=== PATIENT | male | born 1975 ===

== ENCOUNTER 2022-04-29 20:20 | Inpatient (IN) | payer OTHER ==
[2022-04-29 19:21] VITALS: BMI 28.2
[~2022-04-29 20:20] MED LIST: ACETAMINOPHEN 325 MG TABLET (FP) PO PRN; BENZOCAINE/MENTHOL (CHLORASEPTIC ) LOZENGE MM PRN; BISMUTH SUBSALICYLATE 524 MG/30 ML PO PRN; DICYCLOMINE HCL 10 MG CAPSULE PO PRN; IBUPROFEN 400 MG TABLET (FP) PO PRN; LOPERAMIDE HCL 2 MG CAPSULE PO PRN; MAG HYDROX/AL HYDROX/SIMETH 30 ML UNIT-DOSE CUP PO PRN; MAGNESIUM CITRATE 300 ML BOTTLE PO PRN; MAGNESIUM HYDROX 2400MG/30ML ORAL SUSPENSION 30 ML CUP PO PRN; NALOXONE HCL (KLOXXADO) 8 MG SPRAY NS PRN; ONDANSETRON *ODT* 4 MG TABLET SL PRN; P-EPHED 60MG/TRIPROLIDI 2.5MG TABLET PO PRN; guaiFENesin 200 MG/10 ML 10 ML UNIT-DOSE CUPS PO PRN; methaDONE HCL 10 MG TABLET (FOR DETOX USE ONLY) PO ONE
[2022-04-29] MEDS: hydrOXYzine PAMOATE 25 MG CAPSULE (FP) PO PRN (22:18)
[2022-04-29] MEDS: THIAMINE HCL 100 MG TABLET (FP) PO SCH (22:18)
[2022-04-29] MEDS: MELATONIN 5 MG TABLETS PO PRN (22:18)
[2022-04-29] MEDS: NICOTINE 10 MG CARTRIDGE (INHALER) IH PRN (22:21)
[2022-04-30] MEDS: cloNIDine HCL 0.1 MG TABLET PO PRN (05:36)
[2022-04-30] MEDS: hydrOXYzine PAMOATE 25 MG CAPSULE (FP) PO PRN ×3 (05:38→16:30)
[2022-04-30] MEDS: METHOCARBAMOL 500 MG TABLET PO PRN (10:11)
[2022-04-30] MEDS: PRENATAL VITAMINS W/ FOLIC ACID TABLET (FP) PO SCH (10:12)
[2022-04-30 11:02] LABS: HEMATOCRIT 38.7 % (35.4-49); HEMOGLOBIN 13.1 GM/dL (11.7-16.9); MCH 29.9 pg (25.7-33.7); MCHC 33.9 g/dl (32.0-35.9); MEAN CELL VOLUME 88.3 fl (80-96); MEAN PLT VOLUME 8.7 fl (7.5-11.1); PLATELET COUNT 256 10^3/uL (134-434); RBC 4.38 M/mm3 (4.00-5.60); RDW 14.4 % (11.9-15.9); WHITE BLOOD COUNT 7.9 K/mm3 (4.0-10.0)
[2022-04-30 11:15] LABS: ALBUMIN 3.3 g/dl (3.4-5.0); BLOOD UREA NITROGEN 11.6 mg/dL (7-18); CALCIUM 9.2 mg/dL (8.5-10.1)
[2022-04-30 11:18] LABS: CREATININE 0.8 mg/dL (0.55-1.3)
[2022-04-30 11:20] LABS: BILIRUBIN,TOTAL 0.2 mg/dL (0.2-1); TOT PROT 6.5 g/dl (6.4-8.2)
[2022-04-30] MEDS: diazePAM 5 MG TABLET PO PRN ×2 (12:59→19:08)
[2022-04-30] MEDS: THIAMINE HCL 100 MG TABLET (FP) PO SCH (23:12)
[2022-05-01] MEDS: METHOCARBAMOL 500 MG TABLET PO PRN ×4 (01:36→23:15)
[2022-05-01] MEDS: hydrOXYzine PAMOATE 25 MG CAPSULE (FP) PO PRN ×6 (01:36→23:15)
[2022-05-01] MEDS: MELATONIN 5 MG TABLETS PO PRN ×2 (01:36→23:15)
[2022-05-01] MEDS: IBUPROFEN 600 MG TABLET (FP) PO PRN (07:17)
[2022-05-01] MEDS: PRENATAL VITAMINS W/ FOLIC ACID TABLET (FP) PO SCH (09:58)
[2022-05-01] MEDS ORDERED: methaDONE HCL 10 MG TABLET (FOR DETOX USE ONLY) PO ONE (10:00)
[2022-05-01] MEDS: diazePAM 5 MG TABLET PO PRN ×2 (13:05→18:34)
[2022-05-01] MEDS: cloNIDine HCL 0.1 MG TABLET PO PRN ×3 (14:44→23:15)
[2022-05-01] MEDS: NICOTINE 10 MG CARTRIDGE (INHALER) IH PRN (15:15)
[2022-05-01] MEDS: THIAMINE HCL 100 MG TABLET (FP) PO SCH (23:14)
[2022-05-02] MEDS: hydrOXYzine PAMOATE 25 MG CAPSULE (FP) PO PRN ×4 (05:38→21:31)
[2022-05-02] MEDS: PRENATAL VITAMINS W/ FOLIC ACID TABLET (FP) PO SCH (09:47)
[2022-05-02] MEDS: diazePAM 5 MG TABLET PO PRN ×4 (09:47→21:31)
[2022-05-02] MEDS: METHOCARBAMOL 500 MG TABLET PO PRN ×3 (09:47→21:31)
[2022-05-02] MEDS: NICOTINE 10 MG CARTRIDGE (INHALER) IH PRN (09:51)
[2022-05-02] MEDS: IBUPROFEN 600 MG TABLET (FP) PO PRN (15:23)
[2022-05-02] MEDS: MELATONIN 5 MG TABLETS PO PRN (21:31)
[2022-05-02] MEDS: THIAMINE HCL 100 MG TABLET (FP) PO SCH (21:31)
[2022-05-03] MEDS ORDERED: diazePAM 5 MG TABLET PO ONE (02:22)
[2022-05-03] MEDS ORDERED: methaDONE HCL 10 MG TABLET (FOR DETOX USE ONLY) PO ONE (10:00)
[2022-05-03] MEDS ORDERED: diazePAM 5 MG TABLET PO PRN (11:22)
[2022-05-03] MEDS ORDERED: BUPRENORPHINE HCL 150 MCG, BUPRENORPHINE HCL 75 MCG BC ONE (11:22)
[2022-05-03] MEDS ORDERED: BUPRENORPHINE HCL 150 MCG, BUPRENORPHINE HCL 75 MCG BC PRN (11:22)
[2022-05-03] MEDS ORDERED: cloNIDine HCL 0.1 MG TABLET PO ONE (11:22)
[2022-05-03] MEDS ORDERED: clonazePAM 0.5 MG ODT TABLETS SL PRN (11:56)
[2022-05-03] MEDS: PRENATAL VITAMINS W/ FOLIC ACID TABLET (FP) PO SCH (12:11)
[2022-05-03 13:17] VITALS: BP 130/68; PULSE 101; RESP 18; TEMP 97.8
[2022-05-03] MEDS ORDERED: cloNIDine HCL 0.1 MG TABLET PO PRN (15:22)
[2022-05-04] MEDS ORDERED: BUPRENORPHINE HCL 150 MCG, BUPRENORPHINE HCL 75 MCG BC PRN
[2022-05-04] MEDS ORDERED: BUPRENORPHINE HCL 150 MCG, BUPRENORPHINE HCL 75 MCG BC SCH (06:00)
[2022-05-05] MEDS ORDERED: BUPRENORPHINE HCL 450 MCG FILM BC SCH (06:00)
[2022-05-06] MEDS ORDERED: BUPRENORPHINE/NALOXONE 4 MG/1 MG FILM PACKET SL SCH (06:00)
[2022-05-07] MEDS ORDERED: BUPRENORPHINE/NALOXONE 8 MG/2 MG FILM PACKET SL ONE (06:00)
== END 2022-05-03 13:35 | disposition left against medical advice (07) | DRG 770 ==
LOC: YASAS 20:20 → Y6N 20:30
PROVIDERS: ADMIT Allergy & Immunology; ATTEND Family Medicine Addiction Medicine
PROC: HZ2ZZZZ Detoxification Services for Substance Abuse Treatment (ICD-10-PCS; principal; 2022-04-29)
DX: F11.23 Opioid dependence with withdrawal (principal); F10.230 Alcohol dependence with withdrawal, uncomplicated; F14.20 Cocaine dependence, uncomplicated; F12.20 Cannabis dependence, uncomplicated; F17.210 Nicotine dependence, cigarettes, uncomplicated; F19.282 Other psychoactive substance dependence with psychoactive substance-induced sleep disorder; F19.24 Other psychoactive substance dependence with psychoactive substance-induced mood disorder
CPT/HCPCS: 36415; 80053; 82962; 85027; 86780; C9803-CS; U0003; U0005